=== PATIENT | male | born 1990 | race African-American/Black ===

== ENCOUNTER 2017-07-11 22:12 | Emergency (ER) | payer OTHER ==
[~2017-07-11] VITALS: Ht 182.9 cm; Wt 105.0 kg
[~2017-07-11 22:12] MED LIST: HYDR-3533 PO
[2017-07-11] MEDS ORDERED: LACTATED RINGER'S 1000 ML INJ 1,000 ML IV SCH (22:19)
[2017-07-11] MEDS ORDERED: SODIUM CHLORIDE 0.9% FLUSH 10 ML FLUSH IVF PRN (22:30)
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
[2017-07-11] MEDS ORDERED: IOHEXOL 350 MG/ML 10 ML VIAL (for RAD DIAG) IVCONTRAST ONE (23:09)
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
[2017-07-12] VITALS: BP 133/82; PULSE 102; RESP 19; O2SAT 97
[2017-07-12 00:10] LABS: AUTOMATED NEUTROPHIL # 15.6 TH/MM3 (1.8-7.7); BASOPHIL # 0.1 TH/MM3 (0-0.2); BASOPHIL % 0.4 % (0.0-2.0); EOSINOPHIL % 0.1 % (0.0-4.0); HEMATOCRIT 47.1 % (39.0-51.0); HEMO FLAGS DIFF FINAL; LYMPH % 5.8 % (9.0-44.0); MEAN CELL VOLUME 91.2 FL (80.0-100.0); MEAN CORPUSCULAR HEMOGLOBIN 32.4 PG (27.0-34.0); MEAN CORPUSCULAR HGB CONC 35.5 % (32.0-36.0); MONO % 7.5 % (0.0-8.0); NEUT % 86.2 % (16.0-70.0); PLATELET COUNT 173 TH/MM3 (150-450); RED BLOOD COUNT 5.16 MIL/MM3 (4.50-5.90); RED CELL DISTRIBUTION WIDTH 13.6 % (11.6-17.2); WHITE BLOOD COUNT 18.1 TH/MM3 (4.0-11.0)
[2017-07-12 00:15] LABS: BICARBONATE 26.8 MEQ/L (21.0-32.0); POTASSIUM 3.7 MEQ/L (3.5-5.1)
[2017-07-12 01:00] VITALS: BP 111/62; PULSE 98; RESP 20; O2SAT 98
[2017-07-12 02:00] VITALS: BP 128/71; PULSE 92; RESP 20; O2SAT 98
[2017-07-12 03:00] VITALS: BP 138/75
== END 2017-07-12 03:30 | disposition home or self-care (01) ==
LOC: NEPE 22:12
DX: M25.562 Pain in left knee (principal); V48.9XXA Unspecified car occupant injured in noncollision transport accident in traffic accident, initial encounter
CPT/HCPCS: 70450; 71260; 72125; 73564; 74177; 80048; 80307; 85025; 99285; J7120; Q9967